=== PATIENT | female | born 1990 | race American Indian/Alaskan Native ===

== ENCOUNTER 2018-12-07 22:44 | Emergency (ER) | payer MEDICAID, OTHER ==
[2018-12-07 22:53] VITALS: BP 142/73
--- NOTE | 2018-12-07 23:55 | XRay Report ---
PROCEDURE: XR SPINE LUMBOSACRAL 2-3V TECHNIQUE: Lumbar spine radiographs, views. HISTORY: back pain COMPARISONS: None . FINDINGS: Alignment: There is minimal degree of dextroscoliosis . Vertebral body heights/Disk spaces: Normal . Fracture(s): None . Facets: Normal . Bone mineralization: Normal . IMPRESSION: No acute abnormality. This document is electronically signed by Jayy Glover MD., December 07 2018 11:53:59 PM ET
--- NOTE | 2018-12-07 23:55 | XRay Report ---
PROCEDURE: XR CHEST ROUTINE 2V TECHNIQUE: PA and lateral chest radiographs were obtained. HISTORY: chestpain COMPARISONS: None. FINDINGS: Heart: Normal. Mediastinum/Vessels: Normal. Lungs/Pleural space: Normal. Bony thorax: No acute osseous abnormality. IMPRESSION: Normal examination. This document is electronically signed by Jayy Glover MD., December 07 2018 11:54:10 PM ET
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
== END 2018-12-08 02:50 | disposition home or self-care (01) ==
LOC: ED 22:44
DX: S39.012A Strain of muscle, fascia and tendon of lower back, initial encounter (principal); S20.219A Contusion of unspecified front wall of thorax, initial encounter; E66.01 Morbid (severe) obesity due to excess calories; Z98.51 Tubal ligation status; V49.49XA Driver injured in collision with other motor vehicles in traffic accident, initial encounter; Y93.89 Activity, other specified; Y92.89 Other specified places as the place of occurrence of the external cause; Y99.8 Other external cause status
CPT/HCPCS: 71046; 72100; 93005; 93010